=== PATIENT | male | born 1960 | race Caucasian/White ===

== ENCOUNTER 2017-12-21 05:52 | Day surgery (SDC) | payer OTHER | END 2017-12-21 15:30 | disposition home or self-care (01) | LOC: CIR.AMB 05:52 | DX: D30.3 Benign neoplasm of bladder (principal) ==

== ENCOUNTER 2018-07-05 06:44 | Day surgery (SDC) | payer OTHER | END 2018-07-05 14:36 | disposition home or self-care (01) | LOC: CIR.AMB 06:44 | DX: C67.2 Malignant neoplasm of lateral wall of bladder (principal); C67.4 Malignant neoplasm of posterior wall of bladder; C67.5 Malignant neoplasm of bladder neck ==

== ENCOUNTER 2019-09-12 05:52 | Day surgery (SDC) | payer OTHER | END 2019-09-12 15:30 | disposition home or self-care (01) | LOC: CIR.AMB 05:52 → ADM 07:45 → CIR.AMB 07:45 | DX: C67.4 Malignant neoplasm of posterior wall of bladder (principal) ==

== ENCOUNTER 2020-09-24 05:30 | Day surgery (SDC) | payer OTHER | END 2020-09-24 16:15 | disposition home or self-care (01) | LOC: CIR.AMB 05:30 | PROVIDERS: ATTEND Urology | DX: C67.4 Malignant neoplasm of posterior wall of bladder (principal); Z20.822 Contact with and (suspected) exposure to COVID-19 ==